=== PATIENT | female | born 1990 | race Caucasian/White ===

== ENCOUNTER 2024-02-23 11:31 | Emergency (ER) | payer OTHER, SELFPAY ==
[2024-02-23 11:52] VITALS: BP 156/88; PULSE 82; TEMP 36.7; O2SAT 99; BMI 32.2
--- NOTE | 2024-02-23 11:55 | XR_ITS ---
The [address] [address] Patient Name: DEISY MOTA MRN: [id number] date: 1990 Sex: F Assigned Patient Location: ER Current Patient Location: ER Accession/Order Number: [id number] Exam Date: 02/23/2024 12:05 Report Date: 02/23/2024 12:50 At the request of: BECCA HAQUE Procedure: XR hand RT min 3V EXAM: XR hand RT min 3V HISTORY: fall COMPARISON: None. TECHNIQUE: 3 views of the right hand were obtained. FINDINGS: There is no evidence of an acute fracture or dislocation. The joint spaces are intact throughout. No significant focal osseous abnormality is identified. The soft tissues appear unremarkable. XR/XR hand RT min 3V IMPRESSION: No acute fracture or dislocation. The joint spaces are intact throughout. Electronically authenticated by: MONIKA PORTER Date: 02/23/2024 12:50
--- NOTE | 2024-02-23 11:55 | XR_ITS ---
The [address] [address] Patient Name: DEISY MOTA MRN: [id number] date: 1990 Sex: F Assigned Patient Location: ER Current Patient Location: ED.MAIN Accession/Order Number: [id number] Exam Date: 02/23/2024 12:05 Report Date: 02/23/2024 12:48 At the request of: BECCA HAQUE Procedure: XR wrist RT min 3V EXAM: XR wrist RT min 3V HISTORY: fall COMPARISON: None. TECHNIQUE: 3 views of the right wrist were obtained. FINDINGS: There is no evidence of an acute fracture or dislocation. Ulnar minus variance is present. The joint spaces are intact throughout. Soft tissues are intact throughout. XR/XR wrist RT min 3V IMPRESSION: No acute fracture or dislocation. The joint spaces are intact. Electronically authenticated by: MONIKA PORTER Date: 02/23/2024 12:48
--- NOTE | 2024-02-23 13:51 | ED.UPPEXIN1 ---
HPI HPI - Extremity Injury (Upper) General Chief Complaint: Extremity Injury, Upper Stated Complaint: UPPER EXTREMITY INJURY/ FALL Time Seen by Provider: 02/23/24 13:43 Source: patient Mode of arrival: walk-in Limitations: no limitations History of Present Illness HPI narrative: Patient is a 33-year-old female presents to the emergency department for right hand and wrist injury that occurred last night around 6 PM. She states she tripped and fell forward on an outstretched right hand. She complains of pain over the fourth and fifth metacarpals of the right hand on the dorsal aspect. She states she has some numbness and tingling to the third, fourth, fifth fingers. She reports pain radiation into the wrist. She has no other associated injuries, she has no concern for . She has been using Motrin and Tylenol without improvement. She is right-hand dominant. Related Data Previous Rx's ?Medication ?Instructions ?Recorded hydrocodone 5 mg-acetaminophen 325 1 tab PO Q6H PRN pain 2 days #8 02/23/24 mg tablet tabs ketorolac 10 mg tablet 10 mg PO TID PRN pain #10 tabs 02/23/24 Allergies Allergy/AdvReac Type Severity Reaction Status Date / Time No Known Drug Allergies Allergy Verified 02/23/24 11:52 Opioid HPI Opioid Management Most Recent Pain and Opioid Data: No Data to Display Review of Systems ROS Constitutional Denies: fever or chills Ears, nose, mouth, and throat Denies: throat pain or nasal congestion Cardiovascular Denies: chest pain Respiratory Denies: shortness of breath or cough Gastrointestinal Denies: nausea or vomiting Musculoskeletal Reports: extremity pain, extremity swelling and limited range of motion; Denies: back pain or neck pain Integumentary/Breast Denies: rash Neurological Denies: numbness in extremities or weakness in extremities Hematologic/Lymphatic Denies: easy bruising or easy bleeding PFSH PFSH Social History Little interest or pleasure in doing things: not at all Feeling down, depressed, or hopeless: not at all Exam Narrative Exam Narrative: Gen.: Awake, alert, in no distress Head: Normocephalic, atraumatic ENT: Moist mucous membranes Respiratory: No respiratory distress Extremities: 2+ right radial pulse. Diffuse mild swelling of the dorsum of the hand and wrist with no obvious deformity. Limited in extension in the fingers of the right hand. Normal capillary refill with no bony tenderness of the fingers Psych: Normal mood and affect Neuro: No focal neuro deficit Skin: Warm, dry, intact Constitutional Vital Signs, click to edit/add: Last Vital Signs Temp 98.1 F 02/23/24 11:52 Pulse 82 02/23/24 11:52 Resp 18 02/23/24 11:52 BP 156/88 H 02/23/24 11:52 Pulse Ox 99 02/23/24 11:52 O2 Del Method Room Air 02/23/24 11:52 Course Vital Signs Vital signs: Vital Signs Temperature 98.1 F 02/23/24 11:52 Pulse Rate 82 02/23/24 11:52 Respiratory Rate 18 02/23/24 11:52 Blood Pressure 156/88 H 02/23/24 11:52 Pulse Oximetry 99 02/23/24 11:52 Oxygen Delivery Method Room Air 02/23/24 11:52 Temperature 98.1 F 02/23/24 11:52 Pulse Rate 82 02/23/24 11:52 Respiratory Rate 18 02/23/24 11:52 Blood Pressure 156/88 H 02/23/24 11:52 Pulse Oximetry 99 02/23/24 11:52 Oxygen Delivery Method Room Air 02/23/24 11:52 MDM - Extremity Injury (Upper) MDM Narrative Medical decision making narrative: Patient was sent for x-rays in the lobby of the right hand and wrist. These were reviewed by the radiologist with no evidence of acute process. Patient placed in a metal forearm splint and remains neurovascularly intact. She is given a short course of analgesics and NSAIDs. Rest, ice, elevate. Follow-up with PCP and return to the ER if symptoms change or worsen. SUPERVISED APC VISIT, PHYSICIAN ATTESTATION: Based on the medical record the care appears appropriate. ? Medical Records Attestation: I reviewed the patient's medical records. Imaging Data XR hand: Attestation: I have reviewed the pertinent imaging results. Radiologist's impression: ITS Impressions Hand X-Ray 02/23/24 11:55 IMPRESSION: No acute fracture or dislocation. The joint spaces are intact throughout. Electronically authenticated by: MONIKA PORTER Date: 02/23/2024 12:50 Wrist X-Ray 02/23/24 11:55 IMPRESSION: No acute fracture or dislocation. The joint spaces are intact. Electronically authenticated by: MONIKA PORTER Date: 02/23/2024 12:48 Discharge Plan Discharge Chief Complaint: Extremity Injury, Upper Clinical Impression: Contusion of right hand, Contusion of right wrist Patient Disposition: Home, Self-Care Time of Disposition Decision: 13:48 Condition: Good Prescriptions / Home Meds: New hydrocodone-acetaminophen 5-325 mg tablet 1 tab PO Q6H PRN (Reason: pain) 2 Days Qty: 8 0RF Rx Instructions: DX: M79.641 ketorolac 10 mg tablet 10 mg PO TID PRN (Reason: pain) Qty: 10 0RF Print Language: [place]ayan Instructions: Contusion in Adults (ED) Referrals: Physician,Non-Staff, MD [Primary Care Provider] - 1 week Discharge Date/Time: 02/23/24 14:13
== END 2024-02-23 14:13 | disposition home or self-care (01) ==
PROVIDERS: Emergency Provider Emergency Medicine
DX: S60.221A Contusion of right hand, initial encounter (principal); S60.211A Contusion of right wrist, initial encounter; W01.10XA Fall on same level from slipping, tripping and stumbling with subsequent striking against unspecified object, initial encounter
CPT/HCPCS: 73110; 73130; 99284